=== PATIENT | male | born 1985 | race Caucasian/White ===

== ENCOUNTER 2023-01-16 15:34 | Outpatient (OUT) | payer OTHER, SELFPAY ==
--- NOTE | 2023-01-16 | XR_ITS ---
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 The vertebral bodies demonstrate normal sagittal alignment. No acute fracture or subluxation is identified. There is mild disc space narrowing and endplate osteophyte formation at L4-L5. The visualized soft tissues appear unremarkable. XR/XR lumbar spine 2-3V IMPRESSION: Slight degenerative changes. No acute fracture or subluxation is seen. Electronically authenticated by: MICHAEL KRUGER Date: 01/16/2023 16:20
== END 2023-01-16 15:35 | disposition home or self-care (01) ==
LOC: RAD 15:38
PROVIDERS: PCP Family Medicine; Visit Provider Family Medicine
DX: M54.41 Lumbago with sciatica, right side (principal)
CPT/HCPCS: 72100

== ENCOUNTER 2023-06-16 14:58 | Emergency (ER) | payer OTHER, SELFPAY ==
[2023-06-16 15:06] VITALS: BP 168/99; PULSE 66; RESP 14; TEMP 36.6; O2SAT 96; BMI 37.6
--- NOTE | 2023-06-16 15:46 | ED_ITS ---
HPI - General Adult General Chief complaint: Allergic Reaction Stated complaint: allergic reaction Time Seen by Provider: 06/16/23 15:38 Source: patient Mode of arrival: walk-in Limitations: no limitations History of Present Illness HPI narrative: Patient is a 38-year-old male who presents to the emergency department for the evaluation of redness, burning around the bilateral eyes for the last day. He states he started amoxicillin earlier this week for pain in the left mandible around the tooth. He states he has been taking the amoxicillin for 5 days and his tooth is feeling much better. He was concerned that the redness around the eyes may be an allergic reaction although he states he has had amoxicillin in the past with no difficulty. He has had no other lip swelling, tongue swelling, difficulty breathing, no diffuse urticaria noted. No medications taken prior to arrival. He denies visual changes or visual loss. Related Data Home Medications Medication Instructions Recorded Confirmed acetaminophen 325 mg capsule 975 mg PO DAILY PRN pain 06/16/23 06/16/23 amoxicillin 500 mg capsule 500 mg PO Q8H 06/16/23 06/16/23 ibuprofen 600 mg tablet (IBU) 600 mg PO Q12H 06/16/23 06/16/23 Previous Rx's Medication Instructions Recorded erythromycin 5 mg/gram (0.5 %) eye 1 applic ophthalmic (eye) QID #3.5 06/16/23 ointment grams hydroxyzine HCl 25 mg tablet 25 mg PO Q6H PRN itching #20 tabs 06/16/23 prednisone 20 mg tablet See Rx Instructions .Route 06/16/23 .COMPLEX #12 tabs Allergies Allergy/AdvReac Type Severity Reaction Status Date / Time No Known Drug Allergies Allergy Verified 06/16/23 15:03 Review of Systems ROS Constitutional Denies: fever or chills Eyes Reports: light sensitivity and increased production of tears Ears, nose, mouth, and throat Denies: throat pain or nasal congestion Cardiovascular Denies: chest pain Respiratory Denies: shortness of breath or cough Gastrointestinal Denies: nausea or vomiting Integumentary/Breast Reports: rash; Denies: itching or redness Neurological Denies: headache Hematologic/Lymphatic Denies: easy bruising PFSH PFSH Social History Smoking status: Never smoker Exam Narrative Exam Narrative: Gen.: Awake, alert, in no distress Head: Normocephalic, atraumatic ENT: Moist mucous membranes; Bilateral eyes with eyelids erythematous and irritated, no periorbital swelling noted, normal extraocular muscle motion of the eyes with no pain out of proportion. Bilateral conjunctive are minimally injected. Clear tearing noted. Multiple small vesicles that are flat to the face surrounding the eyes,No pustules, crusting or drainage noted. No swelling or urticaria noted of the remainder of the face, no swelling of the lips or tongue. Airway widely open and patent. Clear speech. No stridor. Respiratory: No respiratory distress Extremities: Moves extremities equally Psych: Normal mood and affect Neuro: No focal neuro deficit Skin: Warm, dry, intact Constitutional Vital Signs, click to edit/add: Last Vital Signs Temp 98 F 06/16/23 15:06 Pulse 66 06/16/23 15:06 Resp 14 06/16/23 15:06 BP 168/99 H 06/16/23 15:06 Pulse Ox 96 06/16/23 15:06 O2 Del Method Room Air 06/16/23 15:06 Course Vital Signs Vital signs: Vital Signs Temperature 98 F 06/16/23 15:06 Pulse Rate 66 06/16/23 15:06 Respiratory Rate 14 06/16/23 15:06 Blood Pressure 168/99 H 06/16/23 15:06 Pulse Oximetry 96 06/16/23 15:06 Oxygen Delivery Method Room Air 06/16/23 15:06 Temperature 98 F 06/16/23 15:06 Pulse Rate 66 06/16/23 15:06 Respiratory Rate 14 06/16/23 15:06 Blood Pressure 168/99 H 06/16/23 15:06 Pulse Oximetry 96 06/16/23 15:06 Oxygen Delivery Method Room Air 06/16/23 15:06 Medical Decision Making [facility] Narrative Medical decision making narrative: Exam is consistent with contact dermatitis, Alcaine applied to the bilateral eyes for comfort with significant improvement. He will be placed on tobramycin eyedrops as a precaution due to the mild injection of the eyes but his symptoms are consistent with an exposure causing contact dermatitis. He is started on antihistamines and steroids for home. Follow-up with PCP and return to the ER if symptoms change or worsen. I encouraged the patient to finish his prescription of amoxicillin as I do not believe this represents an acute medication reaction. Medical Records Medical records reviewed: Yes I reviewed the patient's medical records Discharge Plan Discharge Chief Complaint: Allergic Reaction Clinical Impression: Contact dermatitis Patient Disposition: Home, Self-Care Time of Disposition Decision: 15:50 Condition: Good Prescriptions / Home Meds: New prednisone 20 mg tablet See Rx Instructions .ROUTE .COMPLEX Qty: 12 0RF Rx Instructions: 3 tabs daily for 2 days, then 2 tabs daily for 2 days, then 1 tab daily for 2 days erythromycin 5 mg/gram (0.5 %) ointment 1 applic ophthalmic (eye) QID Qty: 3.5 0RF hydroxyzine HCl 25 mg tablet 25 mg PO Q6H PRN (Reason: itching) Qty: 20 0RF No Action amoxicillin 500 mg capsule 500 mg PO Q8H ibuprofen [IBU] 600 mg tablet 600 mg PO Q12H acetaminophen 325 mg capsule 975 mg PO DAILY PRN (Reason: pain) Instructions: Contact Dermatitis (ED) Stand Alone Forms: Portal Instructions Referrals: Physician,Non-Staff, MD [Primary Care Provider] - 1 week
[2023-06-16] MEDS: TOBRAMYCIN 0.3% OP SOL 100 DROP/5 ML BOTTLE OP (16:09)
[2023-06-16] MEDS: HYDROXYZINE HCL 25 MG TABLET PO (16:09)
[2023-06-16] MEDS: METHYLPREDNISOLONE SOD SUCC PF 125 MG/2 ML VIAL IM (16:09)
[2023-06-16] MEDS: TETRACAINE HCL 0.5% OP SOL 80 DROP/4 ML BOTTLE OP (16:10)
[2023-06-16 16:15] VITALS: BP 149/101; PULSE 73; RESP 16; O2SAT 99
== END 2023-06-16 16:16 | disposition home or self-care (01) ==
PROVIDERS: Emergency Provider Emergency Medicine
DX: L25.9 Unspecified contact dermatitis, unspecified cause (principal); Z79.899 Other long term (current) drug therapy
CPT/HCPCS: 96374; 99284; J2930